=== PATIENT | female | born 1935 | race Caucasian/White ===

== ENCOUNTER 2017-05-19 13:18 | Emergency (ER) | payer BC ==
[~2017-05-19] VITALS: Ht 167.6 cm; Wt 86.2 kg
[2017-05-19 13:26] VITALS: BP_SYST 150
[2017-05-19] MEDS ORDERED: ATOR20TA64 PO (13:39)
[2017-05-19] MEDS ORDERED: FURO-149 PO (13:39)
[2017-05-19] MEDS ORDERED: DILT120C2 PO (13:39)
[2017-05-19] MEDS ORDERED: BECL8.7A5 INH (13:39)
[2017-05-19] MEDS ORDERED: APIX2.5T PO (13:39)
[2017-05-19] MEDS ORDERED: DIGO125T79 PO (13:39)
[2017-05-19 14:44] LABS: BASOPHILS # (AUTO) 0.1 K/uL (0.0-0.2); BASOPHILS % (AUTO) 0.9 % (0.0-2.0); HEMATOCRIT 41.9 % (36-48); HEMOGLOBIN 13.9 g/dL (12.0-16.0); LYMPHOCYTES # (AUTO) 0.9 K/uL (1.0-5.5); LYMPHOCYTES % (AUTO) 6.5 % (20.5-51.5); MEAN CORPUSCULAR HEMOGLOBIN 29 pg (27-31); MEAN CORPUSCULAR HGB CONC 33 % (32-36); MEAN CORPUSCULAR VOLUME 89 fL (79.0-98.0); MONOCYTES # (AUTO) 1.2 K/uL (0.0-1.0); MONOCYTES % (AUTO) 8.6 % (1.7-9.3); NEUTROPHILS # (AUTO) 12.3 K/uL (1.8-7.7); PLATELET COUNT (AUTO) 296 K/uL (130-430); RED BLOOD CELL COUNT(AUTO) 4.72 MIL/uL (4.2-6.2); RED CELL DISTRIBUTION WIDTH 14.7 % (9.0-15.0); WHITE BLOOD COUNT (AUTO) 14.5 K/uL (4.8-10.8)
[2017-05-19 14:57] LABS: ANION GAP 5 (5-15); CALCIUM 9.7 mg/dL (8.4-11.0); CHLORIDE 101 mmol/L (98-107); CREATININE 0.82 mg/dL (0.55-1.30); GLUCOSE 121 mg/dL (70-99); SODIUM SERUM 141 mmol/L (136-145); UREA NITROGEN, BLOOD 18 mg/dL (8-21)
[2017-05-19 15:02] LABS: ALANINE AMINOTRANSFERASE 22 U/L (12-78); ALBUMIN 3.2 g/dL (3.4-4.8); ASPARTATE AMINOTRANSFERASE 19 U/L (10-37); POTASSIUM 2.9 mmol/L (3.5-5.1); TOTAL BILIRUBIN 1.1 mg/dL (0.0-1.0); URIC ACID 7.4 mg/dL (2.4-7.0)
[2017-05-19] MEDS ORDERED: POTASSIUM CHLORIDE 20 MEQ/PKT PACKET PO ONE (15:15)
[2017-05-19] MEDS ORDERED: HYDROcodone/ACETAMIN 5-325 MG TAB (NORCO/ VICODIN) PO ONE (17:15)
[2017-05-19 17:40] VITALS: BP_SYST 148
== END 2017-05-19 17:40 | disposition home or self-care (01) ==
LOC: SED 13:18
DX: M10.9 Gout, unspecified (principal); I11.0 Hypertensive heart disease with heart failure; I50.9 Heart failure, unspecified; J44.9 Chronic obstructive pulmonary disease, unspecified
CPT/HCPCS: 36415; 80053; 83605; 84550-TC; 85025; 87040-TC; 99285

== ENCOUNTER 2018-04-06 10:04 | Emergency (ER) | payer BC ==
[~2018-04-06] VITALS: Ht 162.6 cm; Wt 65.8 kg
[2018-04-06 10:04] VITALS: BP_SYST 155
[~2018-04-06 10:04] MED LIST: APIX2.5T PO; APIX5TAB PO; ASA81 PO; ATOR80TA63 PO; BECL8.7A5 INH; CARV3.1246 PO
[2018-04-06] MEDS ORDERED: BACITRACIN 1 GM OINT TP ONE (10:15)
[2018-04-06] MEDS ORDERED: NS 500 ML IV ONE (10:30)
[2018-04-06 10:39] LABS: BASOPHILS # (AUTO) 0.1 K/uL (0.0-0.2); BASOPHILS % (AUTO) 0.9 % (0.0-2.0); EOSINOPHILS # (AUTO) 0.3 K/uL (0.0-0.4); EOSINOPHILS % (AUTO) 3.6 % (0.0-4.0); HEMATOCRIT 34.7 % (36-48); HEMOGLOBIN 11.7 g/dL (12.0-16.0); LYMPHOCYTES # (AUTO) 1.1 K/uL (1.0-5.5); LYMPHOCYTES % (AUTO) 11.8 % (20.5-51.5); MEAN CORPUSCULAR HEMOGLOBIN 31 pg (27-31); MEAN CORPUSCULAR HGB CONC 34 % (32-36); MEAN CORPUSCULAR VOLUME 92 fL (79.0-98.0); MONOCYTES # (AUTO) 0.8 K/uL (0.0-1.0); MONOCYTES % (AUTO) 8.7 % (1.7-9.3); NEUTROPHILS # (AUTO) 7.3 K/uL (1.8-7.7); PLATELET COUNT (AUTO) 282 K/uL (130-430); RED BLOOD CELL COUNT(AUTO) 3.77 MIL/uL (4.2-6.2); RED CELL DISTRIBUTION WIDTH 17.4 % (9.0-15.0); WHITE BLOOD COUNT (AUTO) 9.6 K/uL (4.8-10.8)
[2018-04-06 10:45] LABS: ANION GAP 5 (5-15); CALCIUM 9.4 mg/dL (8.4-11.0); CHLORIDE 107 mmol/L (98-107); CREATININE 1.09 mg/dL (0.55-1.30); GLUCOSE 66 mg/dL (70-99); POTASSIUM 4.3 mmol/L (3.5-5.1); SODIUM SERUM 144 mmol/L (136-145); UREA NITROGEN, BLOOD 31 mg/dL (8-21)
[2018-04-06 10:50] LABS: ALANINE AMINOTRANSFERASE 29 U/L (12-78); ALBUMIN 3.1 g/dL (3.4-4.8); ASPARTATE AMINOTRANSFERASE 24 U/L (10-37); TOTAL BILIRUBIN 0.8 mg/dL (0.0-1.0)
[2018-04-06] MEDS ORDERED: DEXTROSE 50% JECT 50 ML DISP.SYRIN IVP ONE (13:30)
[2018-04-06 14:08] VITALS: BP_SYST 172
== END 2018-04-06 14:08 | disposition home or self-care (01) ==
LOC: SED 10:04
DX: S51.812A Laceration without foreign body of left forearm, initial encounter (principal); E16.2 Hypoglycemia, unspecified; D64.9 Anemia, unspecified; I10 Essential (primary) hypertension; I48.91 Unspecified atrial fibrillation; Z79.899 Other long term (current) drug therapy; W19.XXXA Unspecified fall, initial encounter; Y93.89 Activity, other specified; Y92.89 Other specified places as the place of occurrence of the external cause; Y99.8 Other external cause status
CPT/HCPCS: 36415; 71045; 80053; 82550; 84484; 85025; 93005; 96361; 96374; 99285; J7030

== ENCOUNTER 2024-04-20 19:42 | Inpatient (IN) | payer BC ==
[~2024-04-20] VITALS: Ht 167.6 cm; Wt 77.6 kg
[~2024-04-20 19:42] MED LIST changes: +ATOR-1 PO; -ATOR80TA63 PO
[2024-04-20 19:49] VITALS: BP_SYST 122; PULSE 61; RESP 28; TEMP 97.6; O2SAT 97
[2024-04-20] MEDS: dilTIAZem HCL IVP 5 MG/ML VIAL IVP ONE ×2 (20:22→21:31)
[2024-04-20 20:33] LABS: BASOPHILS % (AUTO) 0.3 % (0.0-2.0); HEMATOCRIT 31.7 % (36-48); HEMOGLOBIN 10.3 g/dL (12.0-16.0); LYMPHOCYTES # (AUTO) 1.2 K/uL (1.0-5.5); LYMPHOCYTES % (AUTO) 11.5 % (20.5-51.5); MEAN CORPUSCULAR HEMOGLOBIN 26 pg (27-31); MEAN CORPUSCULAR HGB CONC 32 % (32-36); MEAN CORPUSCULAR VOLUME 81 fL (79.0-98.0); MONOCYTES # (AUTO) 1.3 K/uL (0.0-1.0); MONOCYTES % (AUTO) 13.1 % (1.7-9.3); NEUTROPHILS # (AUTO) 7.7 K/uL (1.8-7.7); NEUTROPHILS % (AUTO) 75.1 % (40.0-70.0); PLATELET COUNT (AUTO) 182 K/uL (130-430); RED BLOOD CELL COUNT(AUTO) 3.94 MIL/uL (4.2-6.2); RED CELL DISTRIBUTION WIDTH 18.7 % (9.0-15.0); WHITE BLOOD COUNT (AUTO) 10.3 K/uL (4.8-10.8)
[2024-04-20] MEDS: METOPROLOL TARTRATE 5 MG/5 ML VIAL IVP ONE (20:59)
[2024-04-20 21:05] LABS: ALANINE AMINOTRANSFERASE 411 U/L (12-78); ALBUMIN 2.7 g/dL (3.4-4.8); ANION GAP 16 (5-15); ASPARTATE AMINOTRANSFERASE 586 U/L (10-37); CALCIUM 8.8 mg/dL (8.4-11.0); CARBON DIOXIDE 20 mmol/L (23-29); CHLORIDE 102 mmol/L (98-107); CREATININE 3.72 mg/dL (0.55-1.30); GLUCOSE 112 mg/dL (74-106); POTASSIUM 4.8 mmol/L (3.5-5.1); SODIUM SERUM 138 mmol/L (136-145); TOTAL BILIRUBIN 1.7 mg/dL (0.0-1.0); TOTAL PROTEIN, SERUM 6.5 g/dL (6.4-8.3); UREA NITROGEN, BLOOD 69 mg/dL (8-21)
[2024-04-20 21:08] LABS: BILIRUBIN,DIRECT 0.6 mg/dL (0.0-0.3); CREATINE KINASE, TOTAL 62 U/L (26-192)
[2024-04-20] MEDS: ATENOLOL 50 MG TABLET (TENORMIN) PO ONE (21:30)
[2024-04-20] MEDS: NACL 0.9% 500 ML IV ONE (22:43)
[2024-04-20] MEDS: CEFEPIME 1 GM in D5W 50 ML IV ONE (22:48)
[2024-04-20] MEDS ORDERED: CEFEPIME 1 GM/VIAL (MAXIPIME) ONE (22:48)
[2024-04-20] MEDS ORDERED: NOREPINEPHRINE BITARTRATE 4 MG in NS 246 ML IV ONE (23:30)
[2024-04-21] VITALS (12 sets, daily range): BP systolic 91–165; PULSE 115–137; RESP 18–32; TEMP 97; O2SAT 86–97
[2024-04-21] MEDS ORDERED: NOREPINEPHRINE 4 MG/4 ML VIAL IV ONE (00:13)
[2024-04-21] MEDS: NOREPINEPHRINE BITARTRATE 4 MG in NS 246 ML IV ONE (00:32)
[2024-04-21] MEDS ORDERED: FURO40TA5 PO (00:35)
[2024-04-21] MEDS ORDERED: DRON400T PO (00:35)
[2024-04-21] MEDS ORDERED: ATOR20TA64 PO (00:35)
[2024-04-21] MEDS ORDERED: OLME20TA69 PO (00:35)
[2024-04-21] MEDS: NOREPINEPHRINE BITARTRATE 4 MG in D5W 246 ML IV ONE (00:42)
[2024-04-21] MEDS ORDERED: INSULIN REGULAR, HUMAN 100 UNITS/ML, 3 ML VIAL (humuLIN R) SUBCUT PRN (01:00)
[2024-04-21] MEDS ORDERED: IPRATROPIUM/ALBUTEROL SULFATE 3 ML AMPUL.NEB (DUONEB) INH PRN (01:30)
[2024-04-21] MEDS ORDERED: ALBUMIN HUMAN 25% 100 ML IV ONE ×2 (05:30)
[2024-04-21] MEDS ORDERED: D5W 1,000 ML IV PRN (06:30)
[2024-04-21 06:36] LABS: BASOPHILS % (AUTO) 0.2 % (0.0-2.0); EOSINOPHILS % (AUTO) 0.2 % (0.0-4.0); HEMATOCRIT 36.8 % (36-48); HEMOGLOBIN 11.3 g/dL (12.0-16.0); LYMPHOCYTES # (AUTO) 1.5 K/uL (1.0-5.5); LYMPHOCYTES % (AUTO) 10.3 % (20.5-51.5); MEAN CORPUSCULAR HEMOGLOBIN 26 pg (27-31); MEAN CORPUSCULAR HGB CONC 31 % (32-36); MEAN CORPUSCULAR VOLUME 84 fL (79.0-98.0); MONOCYTES # (AUTO) 1.9 K/uL (0.0-1.0); MONOCYTES % (AUTO) 12.9 % (1.7-9.3); NEUTROPHILS # (AUTO) 11.4 K/uL (1.8-7.7); PLATELET COUNT (AUTO) 194 K/uL (130-430); RED BLOOD CELL COUNT(AUTO) 4.36 MIL/uL (4.2-6.2); RED CELL DISTRIBUTION WIDTH 19.1 % (9.0-15.0)
[2024-04-21] MEDS: HYDROCORTISONE SOD SUCC 100 MG/2 ML VIAL IVP SCH (06:41)
[2024-04-21] MEDS: NOREPINEPHRINE 4 MG/4 ML VIAL IV ONE ×2 (06:41)
[2024-04-21] MEDS: PROPOFOL DRIP 100 ML IV ONE (06:41)
[2024-04-21] MEDS: PROPOFOL DRIP 100 ML IV PRN (06:42)
[2024-04-21] MEDS: DEXTROSE 50% JECT 50 ML DISP.SYRIN IVP PRN (06:49)
[2024-04-21] MEDS: D5NS 1,000 ML IV SCH (06:51)
[2024-04-21 06:55] LABS: ALANINE AMINOTRANSFERASE 1202 U/L (12-78); ALBUMIN 2.5 g/dL (3.4-4.8); ANION GAP 19 (5-15); ASPARTATE AMINOTRANSFERASE 2270 U/L (10-37); CALCIUM 8.5 mg/dL (8.4-11.0); CARBON DIOXIDE 16 mmol/L (23-29); CHLORIDE 102 mmol/L (98-107); GLUCOSE 91 mg/dL (74-106); SODIUM SERUM 137 mmol/L (136-145); TOTAL BILIRUBIN 2.2 mg/dL (0.0-1.0); TOTAL PROTEIN, SERUM 6.5 g/dL (6.4-8.3); UREA NITROGEN, BLOOD 66 mg/dL (8-21)
[2024-04-21 07:14] LABS: POTASSIUM 5.9 mmol/L (3.5-5.1)
[2024-04-21] MEDS: DEXTROSE 50% JECT 50 ML DISP.SYRIN ONE (07:25)
[2024-04-21] MEDS: ALBUMIN HUMAN 25% 200 ML IV ONE (08:36)
[2024-04-21] MEDS: AMIODARONE HCL 150 MG in D5W 100 ML IV ONE (09:03)
[2024-04-21] MEDS: NOREPINEPHRINE BITARTRATE 4 MG in D5W 246 ML IV PRN (09:05)
[2024-04-21] MEDS ORDERED: VANCOMYCIN HCL 1.25 GM/NS 250 ML IV ONE (09:30)
[2024-04-21] MEDS ORDERED: SODIUM POLYSTYRENE SULFONATE 15 GM/60 ML UDBTL RC ONE (09:30)
[2024-04-21] MEDS ORDERED: PIPERACILLIN/TAZO 3.375 GM in D5W 50 ML IV SCH (09:30)
[2024-04-21] MEDS: AMIODARONE HCL 450 MG in D5W 241 ML IV SCH (09:53)
[2024-04-21] MEDS ORDERED: SODIUM POLYSTYRENE SULFONATE 15 GM/60 ML UDBTL PO ONE (10:00)
[2024-04-21] MEDS ORDERED: CALCIUM CHLORIDE 1 GM/10 ML DISP.SYRIN (14 mEq Ca++/SYR) ONE (10:00)
[2024-04-21 10:11] LABS: NEUTROPHILS % (AUTO) 76.4 % (40.0-70.0)
[2024-04-21] MEDS ORDERED: VASOPRESSIN 40 UNITS in NS 38 ML IV STA (10:51)
[2024-04-21] MEDS ORDERED: NOREPINEPHRINE BITARTRATE 32 MG in D5W 218 ML IV STA (10:51)
[2024-04-21] MEDS: FUROSEMIDE 20 MG/2 ML VIAL IVP ONE (11:05)
[2024-04-21] MEDS ORDERED: NOREPINEPHRINE BITARTRATE 32 MG in D5W 218 ML IV PRN (11:15)
[2024-04-21] MEDS: DEXTROSE 50% JECT 50 ML DISP.SYRIN IVP ONE (11:24)
[2024-04-21] MEDS: BUMEX 1 MG/4 ML VIAL IVP ONE (11:25)
[2024-04-21] MEDS: PIPERACILLIN/TAZOBACTAM 2.25 GM in D5W 50 ML IV ONE (11:26)
[2024-04-21] MEDS: INSULIN REGULAR, HUMAN 10 UNITS/0.1 ML, 3 ML VIAL IVP ONE (11:27)
[2024-04-21] MEDS: SODIUM BICARBONATE 8.4% JECT 50 MEQ/50 ML SYRINGE IVP ONE (11:41)
[2024-04-21] MEDS ORDERED: VASOPRESSIN 20 UNITS/ML VIAL IV ONE (11:53)
[2024-04-21] MEDS: VASOPRESSIN 40 UNITS in NS 38 ML IV PRN (12:46)
[2024-04-21] MEDS ORDERED: PIPERACILLIN/TAZOBACTAM 2.25 GM in D5W 50 ML IV SCH (14:00)
[2024-04-21] MEDS ORDERED: LINEZOLID 300 ML IV SCH (21:00)
== END 2024-04-21 13:24 | DRG 871 ==
LOC: SED 19:42 → SIC 04-21 01:00
PROVIDERS: ADMIT Specialist; ATTEND Specialist
PROC: 02HV33Z Insertion of Infusion Device into Superior Vena Cava, Percutaneous Approach (ICD-10-PCS; principal; 2024-04-21)
PROC: B548ZZA Ultrasonography of Superior Vena Cava, Guidance (ICD-10-PCS; 2024-04-21)
PROC: 0BH17EZ Insertion of Endotracheal Airway into Trachea, Via Natural or Artificial Opening (ICD-10-PCS; 2024-04-21)
PROC: 5A1935Z Respiratory Ventilation, Less than 24 Consecutive Hours (ICD-10-PCS; 2024-04-21)
DX: A41.9 Sepsis, unspecified organism (principal); J18.9 Pneumonia, unspecified organism; J69.0 Pneumonitis due to inhalation of food and vomit; R65.21 Severe sepsis with septic shock; K72.00 Acute and subacute hepatic failure without coma; J96.01 Acute respiratory failure with hypoxia; N17.9 Acute kidney failure, unspecified; J43.9 Emphysema, unspecified; R57.0 Cardiogenic shock; I48.91 Unspecified atrial fibrillation; I10 Essential (primary) hypertension; K86.89 Other specified diseases of pancreas; E87.5 Hyperkalemia; E11.9 Type 2 diabetes mellitus without complications; E78.00 Pure hypercholesterolemia, unspecified; Z79.82 Long term (current) use of aspirin; Z79.899 Other long term (current) drug therapy; N18.9 Chronic kidney disease, unspecified
CPT/HCPCS: 36415; 71045; 80048; 80053; 80076; 82550; 82948; 83605; 83880; 84484; 85025; 85379; 87040; 87081; 92950; 93306; 94002; 94003; 94070; 94640; 94760; 96365; 99291; J0171; J0282; J0692; J1720; J1815; J1940; J2020; J2543; J2704; J3490; J7060